=== PATIENT | male | born 1955 | race Caucasian/White ===

== ENCOUNTER → 2016-06-16 | Day surgery (SDC) | payer OTHER ==
[~2016-06-16] VITALS: Ht 182.9 cm; Wt 96.2 kg
[~2016-06-16] MED LIST: ASPIR 8181 MG PO; CEPHALEXIN500 MG PO; FORTAMET500 MG PO; IBUPROFEN600 MG PO; NORCO 7.5-3251 EACH PO; POTASSIUM GLUC500 MG PO; PRAVACHOL40 MG PO
[2016-06-16 11:18] LABS: HEMOGLOBIN 17.6 gm/dl (14.0-17.5); RED BLOOD COUNT 5.71 M/UL (4.20-5.50); WHITE BLOOD COUNT 7.1 K/UL (4.5-11.0)
[2016-06-16 11:31] LABS: BUN/CREATININE RATIO 15 (0-10)
== END | disposition home or self-care (01) ==
LOC: OR 10:39
PROVIDERS: Orthopaedic Surgery
PROC: 0PBV0ZZ Excision of Left Finger Phalanx, Open Approach (ICD-10-PCS; 2016-06-16)
PROC: 0HTQXZZ Resection of Finger Nail, External Approach (ICD-10-PCS; principal; 2016-06-16 13:15)
DX: S68.625A Partial traumatic transphalangeal amputation of left ring finger, initial encounter (principal); E11.9 Type 2 diabetes mellitus without complications; M54.9 Dorsalgia, unspecified; M19.90 Unspecified osteoarthritis, unspecified site; Z79.1 Long term (current) use of non-steroidal anti-inflammatories (NSAID); Z79.82 Long term (current) use of aspirin; Z79.899 Other long term (current) drug therapy; Z90.49 Acquired absence of other specified parts of digestive tract; Z98.890 Other specified postprocedural states; W20.8XXA Other cause of strike by thrown, projected or falling object, initial encounter
CPT/HCPCS: 80048; 82962; 85027; J0690; J2250; J3010; J7030; J7120

== ENCOUNTER → 2016-06-24 | Outpatient (CLI) | payer OTHER | LOC: RAD 11:29 | DX: M54.5 Low back pain (principal); R53.1 Weakness; M50.222 Other cervical disc displacement at C5-C6 level; M50.223 Other cervical disc displacement at C6-C7 level; M47.812 Spondylosis without myelopathy or radiculopathy, cervical region; M47.816 Spondylosis without myelopathy or radiculopathy, lumbar region; M47.817 Spondylosis without myelopathy or radiculopathy, lumbosacral region | CPT/HCPCS: 72050; 72072; 73030; 73502 ==

== ENCOUNTER 2016-08-19 13:12 | Emergency (ER) | payer OTHER ==
[2016-08-19 14:31] LABS: HEMOGLOBIN 16.6 gm/dl (14.0-17.5); RED BLOOD COUNT 5.33 M/UL (4.20-5.50); WHITE BLOOD COUNT 15.4 K/UL (4.5-11.0)
== END 2016-08-19 17:20 | disposition home or self-care (01) ==
LOC: ER1 13:12
PROVIDERS: Physician Assistant
DX: N13.2 Hydronephrosis with renal and ureteral calculous obstruction (principal); E86.0 Dehydration; E11.9 Type 2 diabetes mellitus without complications
CPT/HCPCS: 36415; 80053; 81001; 85025; 96374; 96375; 99284; J2270; J2405